=== PATIENT | female | born 1960 | race Caucasian/White ===

== ENCOUNTER 2018-05-25 15:53 | Emergency (ER) | payer OTHER ==
[~2018-05-25] VITALS: Ht 165.1 cm; Wt 127.6 kg
[2018-05-25 16:27] VITALS: Ht 165.1 cm; Wt 127.6 kg
[2018-05-25 17:41] LABS: CALCIUM 8.8 mg/dL (8.5-10.1); CARBON DIOXIDE 26.3 mmol/L (21-32); CHLORIDE SERUM 102 mmol/L (98-107); CREATININE SERUM 0.7 mg/dL (0.6-1.0); GFR1 > 60 mL/min; GLUCOSE SERUM 313 mg/dL (74-106); POTASSIUM SERUM 3.9 mmol/L (3.5-5.1); SODIUM SERUM 137 mmol/L (136-145)
[2018-05-25 17:46] LABS: ALBUMIN 3.4 g/dL (3.4-5.0); ALKALINE PHOSPHATASE 121 U/L (46-116); ALT/SGPT 40 U/L (14-59); AMYLASE 30 U/L (25-115); AST/SGOT 18 U/L (15-37); BILIRUBIN TOTAL 0.38 mg/dL (0.20-1.00); LIPASE 192 IU/L (73-393); TOTAL PROTEIN, SERUM 7.6 g/dL (6.4-8.2)
[2018-05-25 17:59] LABS: BASOPHIL % 0.7 % (0-2); PLATELET COUNT 267 x10^3mcL (130-400)
[2018-05-25 18:57] VITALS: BP 122/63
== END 2018-05-25 18:57 | disposition home or self-care (01) ==
LOC: ED 15:53
PROVIDERS: Specialist
DX: E11.65 Type 2 diabetes mellitus with hyperglycemia (principal); G44.209 Tension-type headache, unspecified, not intractable; R10.12 Left upper quadrant pain; F41.9 Anxiety disorder, unspecified; I10 Essential (primary) hypertension; E78.00 Pure hypercholesterolemia, unspecified; Z98.890 Other specified postprocedural states
CPT/HCPCS: 36415; 82962; J1885

== ENCOUNTER 2018-10-26 20:04 | Emergency (ER) | payer OTHER ==
[~2018-10-26] VITALS: Ht 167.6 cm; Wt 121.6 kg
[2018-10-26 20:51] VITALS: Ht 167.6 cm; Wt 121.6 kg
[2018-10-27 01:03] VITALS: BP 155/94
== END 2018-10-27 01:03 | disposition home or self-care (01) ==
LOC: ED 20:04
DX: J20.9 Acute bronchitis, unspecified (principal); J06.9 Acute upper respiratory infection, unspecified; I10 Essential (primary) hypertension; E11.9 Type 2 diabetes mellitus without complications; E78.00 Pure hypercholesterolemia, unspecified; Z98.890 Other specified postprocedural states

== ENCOUNTER 2020-07-09 18:35 | Emergency (ER) | payer OTHER ==
[~2020-07-09] VITALS: Ht 167.6 cm; Wt 127.0 kg
[2020-07-09 18:39] VITALS: Ht 167.6 cm; Wt 127.0 kg
[2020-07-09 21:15] VITALS: BP 119/51
== END 2020-07-09 21:15 | disposition home or self-care (01) ==
LOC: ED 18:35
DX: T39.315A Adverse effect of propionic acid derivatives, initial encounter (principal); I10 Essential (primary) hypertension; E11.9 Type 2 diabetes mellitus without complications; E66.9 Obesity, unspecified; Z68.42 Body mass index [BMI] 45.0-49.9, adult; Y92.89 Other specified places as the place of occurrence of the external cause
CPT/HCPCS: J0171; J1200; J2930

== ENCOUNTER 2020-09-06 11:51 | Emergency (ER) | payer OTHER, SELFPAY ==
[~2020-09-06] VITALS: Ht 167.6 cm; Wt 124.7 kg
[2020-09-06 11:57] VITALS: BP 134/78; Ht 167.6 cm; Wt 124.7 kg
== END 2020-09-06 14:45 | disposition home or self-care (01) ==
LOC: ED 11:51
DX: U07.1 COVID-19 (principal); I10 Essential (primary) hypertension; E11.9 Type 2 diabetes mellitus without complications; E78.00 Pure hypercholesterolemia, unspecified; Z98.890 Other specified postprocedural states
CPT/HCPCS: J1885; U0003